=== PATIENT | male | born 1965 | race Caucasian/White ===

== ENCOUNTER → 2020-01-10 15:25 | Outpatient (CLI) | payer BC, SELFPAY ==
--- NOTE | ~2020-01-10 | XR_ITS ---
XR cervical spine min 6V DATE: 01/10/2020 15:56 INDICATION: Right arm paresthesia TECHNIQUE: AP, open-mouth, odontoid, bilateral oblique, lateral and swimmer views COMPARISON: None FINDINGS: There is reversal cervical curvature. C1 and C2 are normally aligned and the odontoid process is intact. No fracture or dislocation or locked facet or prevertebral soft tissue swelling. There is moderately severe degenerative disc disease at C5-6 and C6-7. IMPRESSION: Reversal of cervical curvature Moderately severe degenerative disc disease at C5-6 and C6-7 Reviewed, dictated and finalized at location B.
--- NOTE | ~2020-01-10 | XR_ITS ---
XR knee RT min 4V DATE: 01/10/2020 15:55 INDICATION: Internal derangement right knee TECHNIQUE: Standing AP, PA and lateral views. [place] view. COMPARISON: None FINDINGS: Mild suprapatellar knee joint effusion is suggested. A chronic ossicle with sclerotic marino ns is noted above the medial tibial spine. No recent fracture or dislocation. No chondrocalcinosis. Knee joint spaces are well preserved. No per iosteal reaction or bone destruction. IMPRESSION: Mild knee joint effusion Reviewed, dictated and finalized at location B. IMPRESSION: Mild knee joint effusion
== END ==
PROVIDERS: PCP Family Medicine; Visit Provider Family Medicine
DX: M23.91 Unspecified internal derangement of right knee (principal); R20.2 Paresthesia of skin; M53.82 Other specified dorsopathies, cervical region; M50.322 Other cervical disc degeneration at C5-C6 level; M50.323 Other cervical disc degeneration at C6-C7 level; M25.461 Effusion, right knee
CPT/HCPCS: 72052; 73564

== ENCOUNTER 2020-04-10 17:33 | Outpatient (CLI) | payer BC, SELFPAY ==
--- NOTE | ~2020-04-10 | MR_ITS ---
EXAMINATION: MR cervical spine wo con DATE: 04/10/2020 19:07 INDICATION: Cervical radiculopathy. TECHNIQUE: Magnetic resonance imaging (MRI) of the cervical spine was performed without intravenous c ontrast. Sequences included sagittal T2-weighted FSE, sagittal T2-weighted FS FSE, sagittal T1-weight ed FSE, axial MERGE, and axial T2-weighted FSE. COMPARISON: Cervical spine radiographs 01/10/2020 FINDINGS: There is kyphosis of cervical spine. There is a Schmorl's node of inferior endplate of C6. There is mildly decreased disc height at C3-C4 and C6-C7 and moderately decreased disc height at C5-C 6. There is interbody fusion at C7-T1. The spinal cord signal intensity is normal. The following disc levels are specifically discussed: C2-C3: The disc does not extend beyond the endplate margin. There is mild bilateral uncovertebral shayla nt osteoarthritis. There is mild bilateral facet joint osteoarthritis. There is no neural foraminal s tenosis. There is no central canal stenosis. C3-C4: The disc is bulging. There is severe bilateral uncovertebral joint osteoarthritis. There is mi ld right and moderate left facet joint osteoarthritis. There is moderate bilateral neural foraminal s tenosis. There is moderate central canal stenosis with ventral and dorsal indentation of the spinal c ord. C4-C5: There is a central protrusion. There is mild left uncovertebral joint osteoarthritis. There is mild right and moderate left facet joint osteoarthritis. There is mild left neural foraminal stenosi s. There is mild central canal stenosis. C5-C6: The disc is bulging. There is moderate bilateral uncovertebral joint osteoarthritis. There is mild bilateral facet joint osteoarthritis. There is moderate right and mild left neural foraminal kalie nosis. There is mild central canal stenosis with ventral indentation of the spinal cord. C6-C7: The disc is bulging. There is mild right and moderate left uncovertebral joint osteoarthritis. There is mild bilateral facet joint osteoarthritis. There is mild right and moderate left neural for aminal stenosis. There is mild central canal stenosis. C7-T1: The disc does not extend beyond the endplate margin. There is no uncovertebral joint osteoarth ritis. There is ankylosis of the facet joints. There is no neural foraminal stenosis. There is no jerry tral canal stenosis. IMPRESSION: 1. Moderate cervical spondylosis. Reviewed, dictated and finalized at location A.
== END 2020-04-10 17:34 | disposition home or self-care (01) ==
PROVIDERS: PCP Family Medicine; Visit Provider Orthopaedic Surgery
DX: M47.22 Other spondylosis with radiculopathy, cervical region (principal)
CPT/HCPCS: 72141

== ENCOUNTER 2021-03-27 10:01 | Emergency (ER) | payer BC, SELFPAY ==
[2021-03-27 10:26] VITALS: BP 168/113; RESP 20; TEMP 37.2; O2SAT 97
[2021-03-27 10:28] VITALS: BP 182/94
--- NOTE | 2021-03-27 10:30 | ECG_ITS ---
Measurements Intervals [place] Rate: 77 P: -14 MA: 163 QRS: 244 QRSD: 143 T: 32 QT: 385 QTc: 437 Interpretive Statements SINUS RHYTHM VENTRICULAR PREMATURE COMPLEX RIGHT AXIS DEVIATION RIGHT BUNDLE BRANCH BLOCK ABNORMAL ECG Electronically Signed On 03-27-2021 12:03:21 CDT by Siva Walton D.O.
--- NOTE | 2021-03-27 10:41 | ED.GENADULT ---
HPI - General Adult General Chief complaint: Neck Pain/Injury Stated complaint: blood pressure check Time Seen by Provider: 03/27/21 10:18 Source: patient and RN notes reviewed Mode of arrival: ambulatory Limitations: no limitations History of Present Illness HPI narrative: Patient presents today complaining of elevated blood pressure and left shoulder pain. He has been monitoring his blood pressure for the past week and states his systolics have been up to 190s and his diastolics have been up to 115. Prior to this, he has not been monitoring it at home. He does have hypertension and takes lisinopril- hydrochlorothiazide prescribed by his PCP. States that semi recently he has felt tingling in his left shoulder and arm. This is not acute, but patient is unsure if this is related to his diagnosed cervical radiculopathy. He saw ortho ~1 year ago for this radiculopathy and is supposed to have surgery. Patient states that over the past 2 weeks he does become mildly short of breath with some exertion. He currently rates his neck pain 3/10 and occasionally takes ibuprofen for this. During this period of time, patient has not called to report these symptoms to his PCP. States he sees his PCP twice a year in October and April and reports that they just want to adjust his hypertension medications, but do no other tests for him. It seems that he is rather nervous that he may have some cardiac blockages that he is unaware of as he has some family members without any cardiac history that have had MIs. [facility] because he wants some other tests done to rule out other serious causes of his hypertension. Smokes 1.5ppd. complaint: high blood pressure, left shoulder pain Related Data Home Medications Medication Instructions Recorded Confirmed aspirin 81 mg tablet,delayed 81 mg PO DAILY 02/08/20 03/27/21 release atorvastatin 40 mg tablet 40 mg PO DAILY 02/08/20 03/27/21 lisinopril 20 1 tablet PO DAILY 02/08/20 03/27/21 mg-hydrochlorothiazide 25 mg tablet metformin 500 mg tablet 500 mg PO BID 02/08/20 03/27/21 Allergies Allergy/AdvReac Type Severity Reaction Status Date / Time No Known Allergies Allergy Verified 03/27/21 10:17 Review of Systems Review of Systems: Narrative: CONSTITUTIONAL: Denies body aches, fever, chills, or sweats. EYES: Denies visual changes, redness, or discharge. ENT: Denies rhinorrhea, congestion, sore throat, or otalgia. CARDIOVASCULAR: Denies chest pain, palpitations, or edema. RESPIRATORY: Denies cough or dyspnea. GASTROINTESTINAL: Denies abdominal pain, nausea, vomiting, or diarrhea. GENITOURINARY: Denies dysuria or hematuria. SKIN: Denies rash, itching, or wounds. MUSCULOSKELETAL: Denies back pain, or myalgia.+ Left shoulder pain and tingling NEUROLOGIC: Denies headache, numbness, or weakness. PSYCH: Denies depression or anxiety. FORMERLY [facility], 1928–1983 Past Medical History Medical History (Updated 03/27/21 @ 10:58 by Brigitte Hawkins, [facility], ) Diabetes mellitus Hyperlipidemia Hypertension Migraine headache Surgical History Surgical History History of foot surgery Social History Social History Gender identity (if verbalized by the patient): Male Comments At time of signature, I have reviewed and agree with nursing past medical, surgical, social and family history unless otherwise noted. Please see nursing chart for further information. There is no relevant family history pertinent to the presenting complaint Exam Narrative: Exam Narrative: GENERAL: Well-appearing, well-nourished, and in no acute distress. No diaphoresis HEAD: Normocephalic, atraumatic. EYES: EOMI. No redness or drainage. Conjunctivae normal. ENT: Mucous membranes pink and moist. NECK: Normal AROM. Supple. No lymphadenopathy. CHEST: No respiratory distress. Clear to auscultation. HEART: Regu
== END 2021-03-27 10:45 | disposition short-term general hospital (02) ==
LOC: EXPTROY 10:05
PROVIDERS: Emergency Provider Nurse Practitioner; PCP Family Medicine
DX: I10 Essential (primary) hypertension (principal); R20.0 Anesthesia of skin; R20.2 Paresthesia of skin; I45.10 Unspecified right bundle-branch block; E11.9 Type 2 diabetes mellitus without complications; E78.5 Hyperlipidemia, unspecified
CPT/HCPCS: 93005; 99213; G0463

== ENCOUNTER 2021-03-27 10:57 | Emergency (ER) | payer BC, SELFPAY ==
--- NOTE | ~2021-03-27 | XR_ITS ---
EXAMINATION: XR chest 2V EXAM DATE: 03/27/2021 11:50 INDICATION: Left-sided chest pain. Left shoulder numbness. TECHNIQUE: Frontal and lateral projections of the chest obtained and reviewed. There is no prior elizabeth dy for comparison. FINDINGS: Moderate hyperinflation. The lungs are clear. There are no pleural effusions. The cardio mediastinal silhouette is within normal limits. There is no pneumothorax suspected. The bones and s oft tissues are unremarkable. IMPRESSION: 1. No acute cardiopulmonary findings. 2. Hyperinflation. Reviewed, dictated and finalized at location B.
[2021-03-27 11:06] VITALS: BP 160/113; PULSE 88; RESP 15; TEMP 35.9; O2SAT 98
[2021-03-27 11:13] VITALS: BP 169/139; PULSE 86; RESP 27; O2SAT 95
--- NOTE | 2021-03-27 11:30 | PC.NURSE ---
Arrives ambulatory steady gait, sent from [facility] d/t months of LUE numbness and tingling (reports not sure if related to nerves in neck), denies trauma. Last week had BP checked at [facility] [employer], SBP in 170's. States he has been on HCTZ/lisinopril for 10 years. Pt currently denies CP/SOB, non-labored respirations
[2021-03-27 11:42] LABS: Basophils Percent Auto 0.2 % (0.2-1.2); Eosinophils Absolute Auto 0.1 K/mm3 (0-0.3); Eosinophils Percent Auto 1.2 % (0-4.4); Hematocrit 47.2 % (42.0-52.0); Hemoglobin 16.2 g/dL (14.0-18.0); Immature Granulocyte Absolute 0.02 K/mm3 (0.00-0.031); Immature Granulocyte Percent A 0.2 % (0-0.5); Lymphocytes Absolute Auto 2.45 K/mm3 (0.9-3.2); Lymphocytes Percent Auto 29.1 % (18.3-44.2); Mean Corpuscular HGB Conc 34.3 g/dl (32-36); Mean Corpuscular Hemoglobin 32.1 pg (26-34); Mean Corpuscular Volume 93.7 fl (80-100); Mean Platelet Volume 10.6 fl (7.4-10.4); Monocytes Absolute Auto 0.7 K/mm3 (0.1-0.6); Monocytes Percent Auto 8.6 % (2.6-8.5); Neutrophils Absolute Auto 5.1 K/mm3 (1.3-6.7); Neutrophils Percent Auto 60.7 % (45.5-73.1); Platelet Count Result 213 k/mm3 (150-375); Red Blood Count 5.04 M/mm3 (4.6-6.20); Red Cell Distribution Width 12.1 % (11.5-14.5); White Blood Count 8.4 K/mm3 (4.5-10.0)
[2021-03-27 11:51] LABS: Anion Gap 6 mmol/L (8-16); Blood Urea Nitrogen 16 mg/dL (9-20); Calcium 9.4 mg/dL (8.4-10.2); Carbon Dioxide 32 mmol/L (22-30); Chloride 102 mmol/L (98-107); Estimated CRCL calculation 76 ml/min; Estimated Glomerular Filt Rate > 60; Glucose 125 mg/dL (75-110); Potassium 3.5 mmol/L (3.4-5.0); Sodium 140 mmol/L (137-145)
[2021-03-27 11:52] LABS: INR 0.8; Prothrombin Time 11.6 Seconds (11.1-14.7)
[2021-03-27 11:53] LABS: Partial Thromboplastin Time 26.8 SECONDS (22.3-36.8)
[2021-03-27 12:03] LABS: Troponin I < 0.012 ng/mL (0.000-0.034)
--- NOTE | 2021-03-27 12:06 | ED.GENADULT ---
HPI - General Adult General Chief complaint: Recheck/Abnormal Lab/Rx Stated complaint: Elevated BP, L arm tingleing from UC Time Seen by Provider: 03/27/21 11:09 History of Present Illness HPI narrative: Patient is a 55-year-old male who presents ER with concerns for cardiac issues. Patient reports he has noticed his blood pressure has become more elevated over the last for 5 days. Occasionally systolic blood pressure will be in the 190s. He had been well controlled for the last 10 years on a combo medication of lisinopril and hydrochlorothiazide. He reports he has been having some left shoulder numbness occasionally left forearm pain has been intermittent for months. He is now concerned it could be related to elevated blood pressure in his heart. He has known cervical radiculopathy that is caused atrophy in his right upper extremity. No exertional component to his discomfort. No alleviating factors. Related Data Home Medications Medication Instructions Recorded Confirmed aspirin 81 mg tablet,delayed 81 mg PO DAILY 02/08/20 03/27/21 release atorvastatin 40 mg tablet 40 mg PO DAILY 02/08/20 03/27/21 lisinopril 20 1 tablet PO DAILY 02/08/20 03/27/21 mg-hydrochlorothiazide 25 mg tablet metformin 500 mg tablet 500 mg PO BID 02/08/20 03/27/21 Allergies Allergy/AdvReac Type Severity Reaction Status Date / Time No Known Allergies Allergy Verified 03/27/21 10:17 Review of Systems Review of Systems: All systems reviewed & are unremarkable except as noted in HPI and below Constitutional: Constitutional: Denies chills and Denies fever(s) Cardiovascular: Cardiovascular: Denies chest pain, Denies rapid heart rate and Denies radiating jaw, neck or arm pain Respiratory: Respiratory: Denies cough and Denies dyspnea Gastrointestinal: Gastrointestinal: Denies abdominal pain, Denies nausea and Denies vomiting Musculoskeletal: Musculoskeletal: Denies arthralgias and Denies joint swelling Comments: Left shoulder numbness and left arm pain. Chronic right arm pain PMFSH Past Medical History Medical History (Updated 03/27/21 @ 12:28 by Adarsh Lara MD) Diabetes mellitus Hyperlipidemia Hypertension Migraine headache Surgical History Surgical History History of foot surgery Social History Social History Gender identity (if verbalized by the patient): Male Exam Narrative: Exam Narrative: GENERAL: Well-appearing, well-nourished, and in no acute distress. HEAD: Normocephalic, atraumatic. CHEST: Clear to auscultation. No respiratory distress. HEART: Regular rate and rhythm. Normal peripheral pulses. ABDOMEN: Soft, nontender, nondistended. EXTREMITIES: Normal range of motion. No edema. Mild atrophy to the right distal biceps. SKIN: Warm, dry, no rash. NEURO: Alert and oriented x3. PSYCH: Normal mood and affect. Course Course Emergency Course: Patient informed results. Discussed case with the patient's PCP Dr. [place]. He would like the patient be started on metoprolol 50 mg extended release. Vital Signs Vital signs: Vital Signs Temperature 96.7 F L 03/27/21 11:06 Pulse Rate 88 03/27/21 11:06 Respiratory Rate 15 03/27/21 11:06 Blood Pressure 160/113 H 03/27/21 11:06 Pulse Oximetry 98 03/27/21 11:06 Temperature 96.7 F L 03/27/21 11:06 Pulse Rate 91 03/27/21 12:14 Respiratory Rate 17 03/27/21 12:14 Blood Pressure 149/100 H 03/27/21 12:14 Pulse Oximetry 94 03/27/21 12:14 Medical Decision Making Vital Signs Vital Signs: Vital Signs Temperature 96.7 F L 03/27/21 11:06 Pulse Rate 88 03/27/21 11:06 Respiratory Rate 15 03/27/21 11:06 Blood Pressure 160/113 H 03/27/21 11:06 Pulse Oximetry 98 03/27/21 11:06 Temperature 96.7 F L 03/27/21 11:06 Pulse Rate 91 03/27/21 12:14 Respiratory Rate 17 03/27/21 12:14 Blood Pressure 149/100
[2021-03-27 12:14] VITALS: BP 149/100; PULSE 91; RESP 17; O2SAT 94
--- NOTE | 2021-03-27 12:15 | PC.NURSE ---
Pt sitting up on cart, non-labored respirations, denies CP/SOB just a smoker's cough
[2021-03-27 12:47] VITALS: BP 163/102; PULSE 84; RESP 29; O2SAT 93
== END 2021-03-27 13:03 | disposition home or self-care (01) ==
PROVIDERS: Emergency Provider Emergency Medicine; PCP Family Medicine
DX: I10 Essential (primary) hypertension (principal); E11.9 Type 2 diabetes mellitus without complications; E78.5 Hyperlipidemia, unspecified; Z79.84 Long term (current) use of oral hypoglycemic drugs; Z79.82 Long term (current) use of aspirin
CPT/HCPCS: 36415; 71046; 80048; 84484; 85025; 85610; 85730; 99284

== ENCOUNTER 2022-01-27 15:13 | Outpatient (CLI) | payer BC, SELFPAY ==
--- NOTE | ~2022-01-27 | US_ITS ---
EXAMINATION: US soft tissue head and neck DATE: 01/27/2022 15:45 INDICATION: Left supraclavicular mass TECHNIQUE: Multiple grayscale and Doppler ultrasound images of the left supraclavicular region of ankit siegeln were were obtained. COMPARISON: None FINDINGS: 5.5 x 4.3 x 3.2 cm enlarged hypoechoic lymph node with small eccentric echogenic fatty hilum. There a re a couple additional smaller hypoechoic lymph nodes measuring 1.7 similar and 1.3 cm maximal short axis diameter. IMPRESSION: 1. Lymphadenopathy suspicious for either lymphoma or metastatic disease at the left neck, the largest lymph node measuring 5.5 x 4.3 x 3.2 cm. Recommend ultrasound-guided biopsy. Reviewed, dictated and finalized at location B. IMPRESSION: 1. Lymphadenopathy suspicious for either lymphoma or metastatic disease at the left neck, the largest lymph node measuring 5.5 x 4.3 x 3.2 cm. Recommend ultra sound-guided biopsy.
== END 2022-01-27 15:14 | disposition home or self-care (01) ==
PROVIDERS: PCP Family Medicine; Visit Provider Family Medicine
DX: R22.1 Localized swelling, mass and lump, neck (principal)
CPT/HCPCS: 76536

== ENCOUNTER 2022-02-04 12:29 | Outpatient (CLI) | payer BC, SELFPAY ==
--- NOTE | ~2022-02-04 | US_ITS ---
EXAMINATION: US biopsy lymph node DATE: 02/04/2022 13:37 INDICATION: Left supraclavicular lymphadenopathy. TECHNIQUE: The procedure including the risks, benefits, and alternatives was discussed with the patie nt. Risks discussed included bleeding and infection. The patient understood the risks and agreed to p roceed. The skin overlying the left supraclavicular region was prepped and draped in usual sterile fa shion. Anesthetic was administered with 1% lidocaine subcutaneously. An 18 gauge core biopsy needle was then used to obtain 6 core biopsy specimens under continuous sonographic guidance. The entry sit e was cleaned and dressed. There were no immediate complications. FINDINGS: Ultrasound images demonstrate the needle in a 5.7 x 3.1 x 5.9 cm left supraclavicular lymph node. IMPRESSION: 1. Ultrasound-guided core needle biopsy of an enlarged left supraclavicular lymph node. Reviewed, dictated and finalized at location A. IMPRESSION: 1. Ultrasound-guided core needle biopsy of an enlarged left supraclavicular lym ph node.
== END 2022-02-04 12:30 | disposition home or self-care (01) ==
LOC: ANHIMG 12:30
PROVIDERS: PCP Family Medicine; Visit Provider Family Medicine
DX: C80.1 Malignant (primary) neoplasm, unspecified (principal); C79.89 Secondary malignant neoplasm of other specified sites
CPT/HCPCS: 38505; 76942; 88305; 88342

== ENCOUNTER 2023-01-11 12:40 | Emergency (ER) | payer BC, SELFPAY ==
[2023-01-11] VITALS (61 sets, daily range): BP systolic 105–134; BP diastolic 68–103; PULSE 90–154; RESP 18–36; TEMP 37; O2SAT 90–96
--- NOTE | ~2023-01-11 | CT_ITS ---
EXAMINATION: CT facial & cervical spine wo DATE: 01/11/2023 14:30 INDICATION: falls TECHNIQUE: Computed tomography (CT) of the maxillofacial region and cervical spine was performed with out intravenous contrast. Automated exposure control and iterative reconstruction technique were empl oyed. The dose-length product was 579.72 mGy-cm. COMPARISON: None FINDINGS: CERVICAL: Vertebral Body Alignment: Intact. Reversed cervical lordosis. Craniocervical and atlantoaxial alignment: Moderate degenerative change. Alignment intact. Osseous structures/fracture: No evidence of a lytic or blastic process in the visualized spine. No e vidence of acute fracture. Vertebral body and facet fusion at C7-T1. Cervical soft tissues: The paraspinal soft tissues planes are maintained. Degenerative changes: Degenerative changes, without severe central canal narrowing. Severe unk, qulef t neural foraminal narrowing at C3-4. FACE: Soft Tissues: No significant superficial soft tissue swelling. Facial bones: No acute fracture. No lytic or blastic process. Eyes: The globes are intact. The soft tissue planes of the orbits are maintained. Paranasal Sinuses: The visualized aerated spaces are clear. Foreign Bodies: No radiopaque foreign bodies. Other Findings: Periodontal disease. Partially visualized soft tissue mass in the left neck measuring at least 6 cm in greatest diameter, with multiple adjacent enlarged lower cervical chain lymph nodes . Biapical pleural blebs. IMPRESSION: No acute fracture or traumatic malalignment in the cervical spine. No acute facial bone fracture. Par tially visualized left lower neck soft tissue mass, likely jaswinder metastasis, measuring 4.2 cm cm in s hort axis diameter, with multiple additional adjacent smaller pathologic anterior cervical chain lymp h nodes. Reviewed, dictated and finalized at location K. IMPRESSION: No acute fracture or traumatic malalignment in the cervical spine. No acute fac ial bone fracture. Partially visualized left lower neck soft tissue mass, likel y jaswinder metastasis, measuring 4.2 cm cm in short axis diameter, with multiple a dditional adjacent smaller pathologic anterior cervical chain lymph nodes.
--- NOTE | ~2023-01-11 | CT_ITS ---
EXAMINATION: CT brain wo con DATE: 01/11/2023 14:30 INDICATION: fall . TECHNIQUE: Computed tomography (CT) of the head was performed without intravenous contrast. The mA wa s adjusted according to patient size. Iterative reconstruction technique was employed. The dose-lengt h product was 605.33 mGy-cm. COMPARISON: None. FINDINGS: Moderate motion artifact in the inferior portions of the scan No acute intracranial hemorrhage or ext ra-axial fluid collection. Multiple homogenously hyperdense and centrally necrotic intracranial masses in the bilateral cerebral and right cerebellar hemispheres, distributed primarily at the jimenez-white interface. Linear hyperden sity in a left parietal sulcus likely representing either a normal prominent vein, a feeding/draining vessel, or unrelated vascular malformation. No hydrocephalus or herniation. No acute ischemic infarct. Unremarkable dural venous sinus attenuation. No acute osseous abnormality. The aerated spaces are clear. IMPRESSION: No acute traumatic intracranial process. Cerebral and cerebellar metastases. Reviewed, dictated and finalized at location K.
--- NOTE | ~2023-01-11 | CT_ITS ---
EXAMINATION: CTA chest PE abdomen pel DATE: 01/11/2023 14:30 INDICATION: SOB, tachycardia, cancer TECHNIQUE: Computed tomography angiography (CTA) of the chest was performed with 100 mL Omnipaque-350 intravenous contrast timed to evaluate the pulmonary arteries, followed by portal venous phase imagi ng of the abdomen and pelvis. Coronal maximum intensity projection 3D-reconstructions were created by the technologist. The dose-length product (DLP) was 2235.63 mGy-cm. Automated exposure control and i terative reconstruction technique were employed. COMPARISON: X-ray chest 03/27/2021. FINDINGS: CHEST: Lung parenchyma and airways: Segmental and subsegmental areas of consolidation and groundglass opacit y bilaterally and in all lobes. Scattered pulmonary nodules. Pleural blebs. Pleura: Unremarkable. Thoracic inlet, axillae and chest wall: Left lower anterior cervical chain lymphadenopathy measuring up to 4.2 cm in short axis diameter. Enlarged thoracic inlet lymph nodes. Left axillary lymphadenopat hy. Thoracic aorta: Minimal arch calcification. Mediastinum: Prevascular lymphadenopathy measuring up to 2.9 cm. Heart and pericardium: No cardiomegaly. Trace pericardial fluid.. Coronary artery calcifications: Absent. Thoracic bones: No acute osseous finding. Pulmonary arteries: Study quality: Adequate. No pulmonary emboli detected. ABDOMEN/PELVIS: Liver: Normal. Biliary/Gallbladder: Gallbladder is normal. No bile duct dilation. Pancreas: No mass or duct dilation. Spleen: Normal. Adrenals:No mass. Kidneys: Bilateral hypodensities, too small to characterize but likely represent cysts. No suspicious mass, obstructing calcification, or hydronephrosis. GI tract: Significant motion impedes evaluation of the mid abdominal bowel and mesentery. No small or large bowel dilation. Normal appendix. Diverticulosis without diverticulitis. Mesentery/Peritoneum: No ascites, mass, or free air. Retroperitoneum: No mass. Atherosclerotic abdominal aortic and/or arterial calcifications. Mild fusif orm dilation of the abdominal aorta and bilateral common iliac arteries. Pelvis: 1.5 cm hyperdense focus in the dependent and inferior bladder lumen. Soft Tissues: Soft tissues and body wall unremarkable. Abdominopelvic bones: No acute osseous finding. IMPRESSION: 1. No CT evidence of acute pulmonary embolus. 2. Multifocal bilateral pulmonary opacities may represent multifocal pneumonia in the appropriate cli nical context. 3. Pulmonary nodules, likely metastases. 4. Small pericardial effusion. 5. Left lower anterior cervical chain, thoracic inlet, mediastinal, and left axillary lymphadenopathy . 6. Motion artifact limits evaluation of the mid abdominal bowel and mesentery. 7. 1.5 cm hyperdensity within the bladder lumen may represent hemorrhagic, crystalline, or infectious debris or an enhancing bladder mass. Reviewed, dictated and finalized at location K. IMPRESSION: 1. No CT evidence of acute pulmonary embolus. 2. Multifocal bilateral pulmonary opacities may represent multifocal pneumonia in the appropriate clinical context. 3. Pulmonary nodules, likely metastases. 4. Small pericardial effusion. 5. Left lower anterior cervical chain, thoracic inlet, mediastinal, and left ax illary lymphadenopathy. 6. Motion artifact limits evaluation of the mid abdominal bowel and mesentery. 7. 1.5 cm hyperdensity within the bladder lumen may represent hemorrhagic, galo talline, or infectious debris or an enhancing bladder mass.
--- NOTE | 2023-01-11 13:02 | ECG_ITS ---
Measurements Intervals [place] Rate: 148 P: FL: 0 QRS: 133 QRSD: 150 T: 26 QT: 315 QTc: 496 Interpretive Statements ATRIAL FLUTTER/TACHYCARDIA WITH RAPID VENTRICULAR RESPONSE RIGHT AXIS DEVIATION RIGHT BUNDLE BRANCH BLOCK BASELINE ARTIFACT- II, III, AVF, V3 ABNORMAL ECG COMPARED TO ECG 03/27/2021 10:21:40 ATRIAL FLUTTER NOW PRESENT Electronically Signed On 01-11-2023 17:20:40 CDT by Siva Walton D.O.
[2023-01-11 13:14] LABS: Basophils Percent Auto 0.4 % (0.2-1.2); Hematocrit 36.1 % (42.0-52.0); Hemoglobin 12.3 g/dL (14.0-18.0); Immature Granulocyte Absolute 0.33 K/mm3 (0.00-0.031); Immature Granulocyte Percent A 3.2 % (0-0.5); Lymphocytes Absolute Auto 0.42 K/mm3 (0.9-3.2); Lymphocytes Percent Auto 4.1 % (18.3-44.2); Mean Corpuscular HGB Conc 34.1 g/dl (32-36); Mean Corpuscular Hemoglobin 31.3 pg (26-34); Mean Corpuscular Volume 91.9 fl (80-100); Mean Platelet Volume 10.6 fl (7.4-10.4); Monocytes Absolute Auto 0.2 K/mm3 (0.1-0.6); Neutrophils Absolute Auto 9.3 K/mm3 (1.3-6.7); Neutrophils Percent Auto 90.3 % (45.5-73.1); Nucleated Red Blood Cells Perc 0.4 % (0.0-0.2); Platelet Count Result 220 k/mm3 (150-375); Red Blood Count 3.93 M/mm3 (4.6-6.20); Red Cell Distribution Width 14.4 % (11.5-14.5); White Blood Count 10.3 K/mm3 (4.5-10.0)
--- NOTE | 2023-01-11 13:19 | ED.FALL ---
HPI - Fall General Chief Complaint: Fall Stated Complaint: fall Time Seen by Provider: 01/11/23 13:00 History of Present Illness HPI Narrative: Patient is a 57-year-old male with a history of metastatic non-small cell lung cancer followed at [facility], hypertension, DVT on Eliquis, diabetes presenting after a fall. Patient states that the only reason he is here is because his made him come. Patient's is at bedside and states that he has been increasingly weak over the last several days. He was actually just discharged from [facility] a couple of days ago after being treated for pneumonia as well as left arm cellulitis. Patient's states that last night he got up to use the bathroom and as he was walking there he became generally weak and his knees collapsed. He fell to the ground did not strike his head or lose consciousness. Patient's called his oncologist today who advised that he come in for evaluation. Currently, the patient states that he feels a little bit short of breath but he otherwise denies complaints. No chest pain, palpitations, lightheadedness, abdominal pain, vomiting, diarrhea, dysuria, leg swelling. Denies focal numbness or weakness. Related Data Home Medications Medication Instructions Recorded Confirmed aspirin 81 mg tablet,delayed 81 mg PO DAILY 02/08/20 03/27/21 release (Adult Low Dose Aspirin) atorvastatin 40 mg tablet 40 mg PO DAILY 02/08/20 03/27/21 lisinopril 20 1 tablet PO DAILY 02/08/20 03/27/21 mg-hydrochlorothiazide 25 mg tablet metformin 500 mg tablet 500 mg PO BID 02/08/20 03/27/21 Allergies Allergy/AdvReac Type Severity Reaction Status Date / Time No Known Allergies Allergy Verified 01/11/23 12:42 Review of Systems Review of Systems: All systems reviewed & are unremarkable except as noted in HPI and below PMFSH Past Medical History Medical History (Updated 01/15/23 @ 17:48 by Kiara Shepard MD) Diabetes mellitus Hyperlipidemia Hypertension Migraine headache Surgical History Surgical History History of foot surgery Social History Social History Gender identity (if verbalized by the patient): Male Exam Narrative: GENERAL: Chronically ill-appearing, sitting in bed in no acute distress HEAD: Normocephalic, atraumatic. EYES: PERRLA and EOMI. ENT: Nares clear, no rhinorrhea or epistaxis. Mucous membranes dry NECK: Supple. CHEST: Patient is tachypneic with increased work of breathing but lungs are clear to auscultation HEART: Tachycardic, regular rhythm ABDOMEN: Soft, nontender, nondistended EXTREMITIES: Normal range of motion. No edema. SKIN: Warm, dry, no rash. NEURO: No focal deficits. Alert and oriented x3. PSYCH: Normal mood and affect. Course Consultations Consultation #1: Spoke with Dr. Chiu with cardiology regarding the elevated troponin and persistent tachycardia. She agrees the EKG is consistent with atrial flutter with a 2-1 block. Patient denies any chest pain. Suspect the elevated troponin is related to demand ischemia. Patient has received 2 L of fluids at this time and potassium repletion is ongoing. Unfortunately, he remains with a rate of 150. His blood pressures remain adequate, will give 10 mg of Dilt and if he remains in atrial flutter we will start a Cardizem drip. Date: 01/11/23 Time: 15:30 Consultation #2: Call out to the patient's oncologist at [facility], Dr. Brigette Salinas. Spoke with the [place] transfer line who has arranged for an ICU bed at [place]. Their ICU supervisor paper coating states that they expect to have a bed for him sometime this evening. The accepting attending is Dr. Kumar. Patient and family has been updated and are agreeable with this plan. Vital Signs Vital signs: Vital Signs Temperature 98.6 F 01/11/23 12:46 Pulse Rate 90 01/11/23 12:46 Respiratory Rate 18 01/11/23 12:46 P
[2023-01-11] MEDS: LACTATED RINGERS 1,000 ML 999 ML IV CONT ×3 (13:21→20:20)
[2023-01-11 13:26] LABS: INR 1.2
[2023-01-11 13:27] LABS: Partial Thromboplastin Time 32.8 SECONDS (22.3-36.8)
[2023-01-11 13:42] LABS: Lactic Acid Reflex 2.8 mmol/L (0.7-2.0)
[2023-01-11 13:53] LABS: Alanine Aminotransferase 59 U/L (6-50); Albumin Level 3.7 g/dL (3.5-5.1); Alkaline Phosphatase 117 U/L (38-126); Anion Gap 7 mmol/L (8-16); Aspartate Amino Transferase 49 U/L (17-59); Bilirubin,Total 0.7 mg/dL (0.2-1.3); Blood Urea Nitrogen 39 mg/dL (9-20); Calcium 8.6 mg/dL (8.4-10.2); Carbon Dioxide 36 mmol/L (22-30); Chloride 94 mmol/L (98-107); Estimated CRCL calculation 60 ml/min; Estimated Glomerular Filt Rate 52; Glucose 198 mg/dL (65-110); Potassium 2.5 mmol/L (3.4-5.0); Sodium 137 mmol/L (137-145); Troponin I 0.115 ng/mL (0.000-0.034)
[2023-01-11 14:06] LABS: Lipase 44 U/L (23-300)
[2023-01-11 14:08] LABS: Influenza A QL RT-PCR Negative (Negative); Influenza B QL RT-PCR Negative (Negative); SARS-CoV-2 RNA PCR Negative
[2023-01-11 14:16] LABS: NT Pro B Type Natriuretic Pept 6380 pg/mL (19.9-100)
[2023-01-11] MEDS: POTASSIUM CHLORIDE INJ 40 MEQ in SODIUM CHLORIDE 0.9% IV 500 ML 130 MEQ IVPB (14:35)
[2023-01-11] MEDS: POTASSIUM CHLORIDE 20 MEQ TABLET 40 MEQ PO (14:35)
[2023-01-11] MEDS: dilTIAZem HCl INJ 25 MG/5 ML VIAL 10 MG IV PUSH (15:20)
[2023-01-11 16:30] LABS: Reflex Lactic Acid Yes or No Add Lactic
[2023-01-11] MEDS: dilTIAZem 100 MG/100 ML 100 MG/100 ML BAG 10 MG IV CONT (16:30)
[2023-01-11 17:07] LABS: Lactic Acid 1.6 mmol/L (0.7-2.0)
[2023-01-11 17:29] LABS: Appearance Urine Clear (Clear); Bacteria Urine None Seen /hpf; Bilirubin Urine Negative (Negative); Blood Urine Trace (Negative); Color Urine Yellow (Yellow); Glucose Urine UA Negative (Negative); Ketones Urine Negative (Negative); Leukocyte Esterase Ur Negative LEU/UL (Negative); Need Manual Microscopic Reviewed; Nitrate Urine Negative (Negative); Protein Urine 1+ mg/dL (Negative); RBC Urine 0-2 /hpf (0-2); Squamous Epithelial Cell Urine None seen /hpf (Few); Urobilinogen Urine 0.2 mg/dL (<2.0); WBC Urine 0-5 /hpf; pH Urine 5.5 (5.0-9.0)
[2023-01-11 17:51] LABS: Specific Grav Ur 1.048 (1.001-1.035)
[2023-01-11 17:52] LABS: Add Urine Microscopic? YES
--- NOTE | 2023-01-11 18:11 | PC.NURSE ---
1807 called An zelaya about bed status, no bed yet, will call floor and call us back.
--- NOTE | 2023-01-11 19:12 | PC.NURSE ---
Patient report given to MACY Treadwell. All questions answered and care of patient transferred.
[2023-01-11 20:07] LABS: Troponin I 0.112 ng/mL (0.000-0.034)
--- NOTE | 2023-01-11 20:20 | PC.NURSE ---
Patient care report given to EMS crew along with paperwork for transport. EMS crew initiated LR per doctors order
== END 2023-01-11 20:30 | disposition short-term general hospital (02) ==
PROVIDERS: Physician Assistant; Emergency Provider Emergency Medicine; PCP Family Medicine
DX: J18.9 Pneumonia, unspecified organism (principal); I48.92 Unspecified atrial flutter; R09.02 Hypoxemia; C34.90 Malignant neoplasm of unspecified part of unspecified bronchus or lung; E87.6 Hypokalemia; Z20.822 Contact with and (suspected) exposure to COVID-19; E11.9 Type 2 diabetes mellitus without complications; E78.5 Hyperlipidemia, unspecified; I10 Essential (primary) hypertension; Z79.84 Long term (current) use of oral hypoglycemic drugs
CPT/HCPCS: 36415; 70450; 70486; 71275; 72125; 74177; 80053; 81001; 83605; 83690; 83880; 84484; 85025; 85610; 85730; 87040; 87636; 93005; 96365; 96366; 96367; 96368; 96376; 99285; A9270; J0692; J3370; J3480; J7040; J7120; Q9967